=== PATIENT | male | born 1990 | race Native Hawaiian/Other Pacific Islander ===

== ENCOUNTER 2018-09-09 08:51 | Day surgery (SDC) | payer OTHER ==
[2018-08-31 13:06] VITALS: BMI 24.7
[2018-09-09] MEDS ORDERED: Propofol 10 mg/ml Inj (20 ML) ONE (12:41)
[2018-09-09] MEDS ORDERED: Midazolam 2 MG/2 ML VIAL ONE (12:41)
[2018-09-09] MEDS ORDERED: EPINEPHrine- 1.5 MG in Sodium Chloride 0.9% Irrig 3,000 ML IR PRN ×2 (12:45→16:06)
[2018-09-09] MEDS ORDERED: EPINEPHrine- 1.5 MG in Sodium Chloride 0.9% Irrig 3,000 ML IR SCH (12:45)
[2018-09-09] MEDS ORDERED: ceFAZolin 1 gm in NS 2 GM/200 ML BAG IVPB ONE (13:10)
[2018-09-09] MEDS ORDERED: Neostigmine 1:1000 (1 mg/ml) Inj ONE (17:29)
[2018-09-09] MEDS ORDERED: HYDROmorphone 0.5 mg/0.5 ml ISec IVP PRN (17:41)
[2018-09-09] MEDS ORDERED: Ropivacaine 0.5% PF (20 ml) inj INJ ONE (17:59)
--- NOTE | 2018-09-09 18:15 | PCM.ANESB7 ---
Adductor Canal Block - Adductor Canal Block Date of Procedure: 09/09/18 Anesthiologist: geena Pre-Procedure Diagnosis: right acl tear Procedure Performed: Adductor Canal Block Right - Procedure Adductor Canal Block: The procedure was explained to the patient that it is for the post-operative pain management. Consent was obtained after a thorough discussion with the patient regarding the benefits and possible complications of local anesthetic adductor canal block of the femoral nerve. Standard monitors, as defined by the ASA, were applied to the patient. Time-out was held with the circulating nurse to confirm the appropriate block. After applying supplemental oxygen and administering IV Sedation as needed, the patient was placed in supine position with and the operative leg was flexed slightly at the knee and externally rotated as needed, and was kept anatomically stable. The mid-thigh of the right__ lower extremity was exposed. The ultrasound transducer was then applied transversely along the medial aspect, about midway down the thigh and the femoral artery and vein were identified in appropriate relation with the sartorius muscle. At this time, the femoral nerve was visualized lateral to the femoral artery within the canal. After thorough identification, this area area was prepped with Chloroprep solution three times and 1 % Lidocaine was injected subcutaneously for topical anesthesia. At this point, a #22 gauge Stimuplex 4-inch needle was inserted in-plane in a [id number] orientation, and advanced toward the femoral nerve. Advancement was performed carefully under direct ultrasound visualization.After negative aspiration, _5____cc of _.5____% ropivicaine was injected and this was followed with ____15__ cc of ____.5___ % _ropivicaine . Under ultrasound guidance the local anesthetics were observed spreading around the femoral nerve. The needle was removed intact and sterile dressing was applied. The patient had stable vital signs, was conscious and in no apparent distress. The patient tolerated the femoral nerve block well with stable vital signs and was prepared for subsequent surgery
[2018-09-09] MEDS ORDERED: Tobramycin 0.3% OPHT SOLN OS ONE (20:00)
--- NOTE | 2018-09-09 20:25 | CP.PCM.PN ---
Subjective - Date & Time of Evaluation Date of Evaluation: 09/09/18 Time of Evaluation: 20:00 - Subjective Subjective: I was the in house anesthesiologist day habilitation supervisor, called by [facility] nurses to evaluate post op patient for left eye discomfort. Pt seen and examined in PACU. Patient does not report a pain in the left eye just discomfort and gritty feeling. Eye opened , some conjuctival redness, some tearing, on gross inspection no foreign bodies were noticed or ulcers or scratches. Patient is in no distress, lying down in bed comfortably, by the bedside. Since patient is sleepy from pain killers was given clear explanation and instructions. She and the patient were explained that this is likely corneal abrasion. Tobrex 0.3% eye drops were started in [facility], to be repeated in an hour and from then on every 4hrs , 2 drops in left eye. was instructed. Also if the patient feels better with eye patched they can put the patch for comfort, patch provided by [facility]. and patient were instructed if any symptoms worsen,or the eye gets swollen, or discharge starts, any redness to report immediately to the ER. Family understands and agrees to it. The surgeon and anesthesiologist on the case notified of the event and plan for treatment. Objective - Vital Signs/Intake and Output Vital Signs (last 24 hours): Temp Pulse Resp BP Pulse Ox 97.3 F L 93 H 18 125/80 99 09/09/18 09:12 09/09/18 09:12 09/09/18 09:12 09/09/18 09:12 09/09/18 09:12 Intake and Output: 09/09/18 09/10/18 18:59 06:59 Intake Total 1400 Balance 1400 - Medications Medications: Current Medications Epinephrine HCl 1.5 mg/ Sodium (Chloride) 3,001.5 mls @ 0 mls/hr IR Q0M PRN PRN Reason: PER MD ORDER Epinephrine HCl 1.5 mg/ Sodium (Chloride) 3,001.5 mls @ 0 mls/hr IR Q0M PRN PRN Reason: PER MD ORDER
[2018-09-09 21:30] VITALS: TEMP 98.3; O2SAT 98
[2018-09-09 22:30] VITALS: BP 122/72; PULSE 90; RESP 11
--- NOTE | 2018-09-14 13:28 | PCM.SURG1 ---
Surgeon's Initial Post Op Note - Surgeon's Notes Surgeon: Leyla Serrato MD Tallow Refiner: Sonia Castillo PA-C Type of Anesthesia: General Endo, [facility] Pre-Operative Diagnosis: Right knee: #1 complete ACL tear w/ grade 3 instability. #2 lateral meniscal tear. #3 posterior lateral complex grade 2 injury. #4 medial meniscal tear Operative Findings: Right knee: #1 complete ACL tear w/ grade 3 instability. #2 lateral meniscal tear (3 zones of injury: #1 posterior horn large oblique tear at white-red zone/red-red zone, repairable, #2 posterior horn complex horizontal cleavage tear white-red zone/white-white zone, not repairable, #3 Free edge complex tear at junction posterior horn-root, white-white zone tear, not repairable, posterior root stable). #3 medial meniscal tear (2 zones of injury = #1 complex tear superior surface, junction posterior horn-root, not repairable, stable posterior root, #2 complex tear free edge mid body to posterior horn, white-white zone). #4 Posterior lateral corner injury, stable examination under anesthesia, grade 1 with firm endpoint. #5 hypertrophic, inflamed infrapatellar fat pad causing anterior impingement and PF impingement. #6 symptomatic medial and lateral plica bands. #7 significant hypertrophic inflamed synovitis throughout all 3 compartments. 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 #2 lateral meniscal tear (3 zones of injury: #1 posterior horn large oblique tear at white-red zone/red-red zone, repairable, #2 posterior horn complex horizontal cleavage tear white-red zone/white-white zone, not repairable, #3 Free edge complex tear at junction posterior horn-root, white- white zone tear, not repairable, posterior root stable). #3 medial meniscal tear (2 zones of injury = #1 complex tear superior surface, junction posterior horn-root, not repairable, stable posterior root, #2 complex tear free edge mid body to posterior horn, white-white zone). #4 Posterior lateral corner injury, stable examination under anesthesia, grade 1 with firm endpoint. #5 hypertrophic, inflamed infrapatellar fat pad causing anterior impingement and PF impingement. #6 symptomatic medial and lateral plica bands. #7 significant hypertrophic inflamed synovitis throughout all 3 compartments. 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 #2 arthroscopic all inside lateral meniscal repair. #3 arthroscopic partial medial menisectomy. #4 arthroscopic synovectomy all 3 compartments. #5 arthroscopic resection and debridement symptomatic medial and lateral plica band. #6 arthroscopic resection and debridement hypertrophic/inflamed fat pad. #7 arthroscopic chondroplasty patella Specimen/Specimens Removed: specimen = none. Tourniquet time = 0 minutes. Complications = none. Implants =. #1 Arthrex: Fast thread bio composite interference screw 11 mm x 30 millimeter, tight rope double loaded RT system, tight rope button photographic engineer, FiberWire suture. #2 Linvatec: All inside meniscal repair system, 8 implants in total, (2 Kits open) for lateral meniscus repair Estimated Blood Loss: EBL {In ML}: 10 Blood Products Given: N/A Drains Used: No Drains Post-Op Condition: Good Date of Surgery/Procedure: 09/09/18 Time of Surgery/Procedure: 16:00
--- NOTE | 2018-09-21 10:57 | OP ---
PROCEDURE DATE: 09/09/2018 PREOPERATIVE DIAGNOSES: Right knee: 1. Complete acromioclavicular tear with grade 3 instability. 2. Lateral meniscal tear. 3. Posterior lateral complex grade 2 injury. 4. Medial meniscal tear. POSTOPERATIVE DIAGNOSES: Right knee: 1. Complete acromioclavicular tear with grade 3 instability. 2. Lateral meniscal tear (three zones of injury): a. Posterior horn large oblique tear at right-red zone/ red-red zone, repairable. b. Posterior horn complex horizontal cleavage tear right-red zone/ right-white zone not repairable. c. Free edge complex tear at junction posterior horn-route, white-white zone tear, not repairable, posterior route is stable. 3. Medial meniscal tear (two zones of injury): a. Complex tear superior surface, junction posterior horn-route, not repairable, posterior route is stable. b. Complex tear free edge mid body to posterior horn, white-white zone, not repairable. 4. Posterior lateral corner injury, stable examination under anesthesia, grade 1 with firm end point. 5. Hypertrophic, inflamed infrapatellar fat pad, causing anterior impingement and patellofemoral impingement. 6. Symptomatic medial and lateral plica bands. 7. Significant hypertrophic inflamed synovitis throughout all three compartments. 8. 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 PROCEDURES PERFORMED: Right knee arthroscopic: 1. Arthroscopic assisted acromioclavicular reconstruction with allograft hamstring. 2. Arthroscopic all inside lateral meniscus repair. 3. Arthroscopic partial medial meniscectomy. 4. Arthroscopic synovectomy all three compartments. 5. Arthroscopic resection and debridement symptomatic, medial and lateral plica bands. 6. Arthroscopic resection and debridement hypertrophic/inflamed fat pad. 7. Arthroscopic chondroplasty of the patella. 8. Evaluation of posterior lateral corner under anesthesia. SURGEON: Leyla Serrato MD FLIPPING MACHINE OPERATOR: Sonia Castillo PA-C JUSTIFICATION FOR FLIPPING MACHINE OPERATOR: Sonia Castillo is a certified physician land surveyor assistant whose skilled surgical service was an absolute necessity for successful completion of the procedure as he provided skilled surgical assistance with positioning of the patient, positioning of extremity, management of surgical field, retraction of neurovascular structures, preparation of ACL allograft for ACL reconstruction, preparation of femoral tunnel, preparation of tibial tunnel, passage of ACL graft and femoral sided fixation as well as tibial sided fixation utilizing anatomic single bundle technique. Management of arthroscopic equipment and facilitating all inside lateral meniscus repair, partial medial meniscectomy, extensive synovectomy, all three compartments, wound closure, fitting and placement of postoperative hinged knee brace. Sonia Castillo was present for the entire case, who was an absolute necessity for the successful completion of the procedure. TYPE OF ANESTHESIA: General endotracheal anesthesia with a postop regional nerve block placed by anesthesia staff in PACU. SPECIMEN: None. TOURNIQUET TIME: 0 minutes. COMPLICATIONS: None. ESTIMATED BLOOD LOSS: 10 mL. DRAINS: None. DISPOSITION: The patient was extubated and transferred to the PACU in stable condition and tolerated the procedure well. IMPLANTS: Arthrex [employer] interference screw measuring 11 mm x 30 mm length for a tibial sided fixation ACL graft, tight rope, double loaded RT system with a tight rope button extended for femoral sided fixation of ACL graft. [employer] all inside meniscal repair system, 8 implants in total (two kits open) for lateral meniscus for all inside repair. INDICATIONS FOR SURGERY: The patient is a 28-year-old male with no significant past medical history who presented to the first time under my care in my office on 08/11/2018 with right knee pain and instability since 07/16/2018. Date of injury was 07/16/2018 when he was playing recreational soccer in a recreational soccer league and during a game he twisted his body over his right knee without contact from another player resulting in immediate sensation of a pop and development of 9/10 pain localized to the right knee with swelling. He was unable to return to the game to play. He reported the subjective sensation of instability and medial and lateral joint line pain. Since that date of injury, he was unable to return to sports. Initial examination in the office showed positive medial and lateral [place] with tenderness to palpation at medial and lateral joint line, significant ACL instability with 3+ anterior drawer external rotation/ internal rotation/neutral, 3+ Digna, 3+ pivot shift with limited range of motion from 0 to 90 degrees flexion. X-rays in the office taken on 08/11/2018 showed neutral alignment with no evidence of fracture or dislocation and no evidence of DJD with medial and lateral joint line as well as patellofemoral joint well maintained. He was referred for an MRI of the right knee done at [facility] on 08/12/2018 which was read as: 1. Reciprocal bone contusions in keeping with pivot shift injury. 2. Full thickness ACL tear. 3. Grade 2 sprain lateral collateral ligament complex. 4. Oblique tear through lateral meniscus. 5. Grade 1 MCL sprain. On initial presentation in the office he was placed in an [id number] ACL brace for stability and referred to start conservative treatment. He was referred to start physical therapy to regain his range of motion as much as possible. He was started on Mobic antiinflammatory medication and compound antiinflammatory cream and he was encouraged to work hard on a home exercise program to supplement physical therapy. On his followup visit on 08/15/2018 for the review of the MRI, he already had great improvement in range of motion and had regained significant range of motion with 0 to 120 degree flexion arch. I reviewed the MRI at length with him and discussed treatment options. I explained to him the nature of ACL tear. He stated that when he was wearing the ACL brace, he was able to ambulate and felt that he had good stability, but once he tried to perform any sports activities or twisting maneuvers with the brace off, he immediately felt giving way and the sensation of falling. We reviewed the indications for ACL reconstruction and meniscus repair and the risks, benefits, and alternatives. With his current presentation and activity level, he was indicated for ACL reconstruction with allograft versus autograft and evaluation of posterior lateral corner under anesthesia as well as arthroscopic lateral meniscus repair versus partial meniscectomy and possible need for medial meniscus repair versus partial medial meniscectomy and all related indicated arthroscopic procedures. Initial plan was for him to wait a few months until the timing was right for him. As stated before he was already regaining most of his range of motion and was making good progress with his dedication to physical therapy and home exercise program. He then called my office and stated that he was expecting his first child to be born in December and did not anticipate that he would be able to have the surgery anytime soon after the baby was born and was requesting to undergo the surgery as soon as possible so that he would have adequate time to recover and regain his strength and range of motion in time for the delivery of his baby to be able to assist his and take care of the baby. He was initially scheduled for surgery on 09/09/2018 and came in for his final preoperative discussion where we discussed ACL graft choices and he watched multiple surgical animation videos and diagnosis animation videos at length, after all questions were answered he stated that he understood his diagnosis in detail and the multiple parts of the procedure. The risks, benefits, and alternatives to the surgery were discussed at length with the patient with the risks including but not limited to infection, neurovascular damage, need for further surgery, failure of graft, failure of graft fixation, failure of repair, iatrogenic injury, advanced degeneration of cartilage and chondrolysis, development of chronic pain and disability, stiffness, development of blood clots including DVT and PE, anesthesia reactions including . After answering all of his questions he stated that he understood the risks and wished to proceed with surgery. I reviewed at length with the patient the postop rehabilitation protocol and he stated that he had a good understanding of the need for compliance with the rehab protocol in order to maximize the chance of having a successful outcome after surgery. We also spent a longtime discussing the benefits and alternatives to autograft, hamstring as the graft of choice versus bone patellar bone autograft versus allograft, hamstring/soft tissue graft. He did his own research online and contacted me on many occasions over the phone and through email about graft choices and through the course of multiple discussions. In the preoperative area, on the day of surgery, he elected to proceed with allograft, hamstring as his graft of choice and final decision. He was referred to his primary care physician for preadmission testing and preoperative medical evaluation. The procedure was scheduled at [facility] on 09/09/2018. PROCEDURE IN DETAIL: The patient was identified in the preoperative holding area and the right knee was marked for surgery. Once again as described above the risks, benefits, and alternatives of the procedure were discussed at length with the patient and informed consent was obtained. Once again, we decided to proceed with hamstring allograft for the ACL reconstruction graft if indeed indicated to have ACL reconstruction after physical examination under anesthesia and arthroscopic evaluation. After a brief discussion with the anesthesia staff perioperative IV antibiotics in the form of 2 g of Ancef were administered and the patient was taken to the operating room and placed in a well-padded operating room table with all bony prominences and supervision neurovascular structures were well- padded. An initial time-out was done with the surgeon, anesthesia staff, OR staff and all are in agreement with the patient, procedure to be done, extremity being operated on. General anesthesia was administered without difficulty or complications. An examination under anesthesia was then carried out. Examination under anesthesia: Right knee with limited range of motion obtained compared to contralateral knee, lacking 15-20 of extension to 90 flexion with 1+ swelling, no warmth, no erythema and skin intact. Significant ACL instability with 2+ anterior trimmer machine neutral, external rotation and internal rotation with endpoint, 2+ Digna with endpoint, pivot shift not performed to preserve the bucket handle meniscus tear, negative posterior drawer, negative reverse Digna, negative opening to a medial or lateral joint line of 20 or 30 degrees of varus or valgus stress, patella with normal tracking and no evidence of instability, there was suspicion for a symptomatic medial plica band that engaged the inferomedial aspect of the patella at 30 degrees flexion consistently throughout arc of range of motion. The right knee was prepped and draped in standard sterile fashion. A tourniquet was placed high on the right thigh, but never inflated. A final time-out was done with the surgeon, anesthesia staff, and OR staff were all are in agreement with the patient, procedure being done, extremity being operated on. 50 cc of normal saline were used to insufflate the knee joint. A stab incision was made to create an anterolateral portal through the skin down to the subcutaneous tissue down to the level of the capsule. The blunt arthroscopic trocar and cannula were inserted into the suprapatellar pouch. And insufflation with arthroscopic fluid was begun. With the use of spinal needle localization, optimal entry point for the anteromedial portal was selected and a stab incision was made through skin down subcutaneous tissue to create the anteromedial portal. An accessory cannula was inserted into the anterior medial portal and the knee was copiously irrigated for better visualization and removal of synovial debris. With the use of the arthroscopic probe, a diagnostic arthroscopy was then carried out. Diagnostic arthroscopy: Attention was first turned towards the suprapatellar pouch where there was no evidence of adhesions or loose bodies. Attention was then turned towards the patellofemoral joint where intact patella and trochlear cartilage were seen with a well-situated patella within the trochlea with no evidence of instability or subluxation. There was significant hypertrophic synovial inflamed tissue interposed at the patellofemoral joint as well as hypertrophic and inflamed fat pad causing impingement symptoms as well and also a thickened medial plica band extending from the inferomedial aspect of the patella to the medial retinaculum. Attention was then turned towards the medial gutter where there was no evidence of loose bodies and as stated further with significant synovitis and the plica band. At the anterior aspect of the knee joint, there was also hypertrophic fat pad and significant hypertrophic synovitis. Attention was then turned towards the medial compartment, immediately seen was an obvious large bucket-handle medial meniscus tear flipped over and stuck around the medial femoral condyle M within the intercondylar notch around the PCL, and with the use of the arthroscopic probe, the medial meniscus was carefully evaluated. The medial meniscus had the expected bucket-handle meniscus tear that extended to the periphery as a red-white zone injury encompassing the anterior horn extending posteriorly to the posterior horn. The was a secondary zone of injury as a longitudinal and complex tear of the posterior horn with meniscocapsular separation and instability of the posterior horn. The bucket-handle portion of the tear exhibited poor quality tissue, nevertheless a future repair attempt would be made. At the mid body of the medial meniscus periphery, there was nonabsorbable suture and visible implant from the previous medial meniscal repair. The medial tibial plateau exhibited normal cartilage with no evidence of chondral injury and the medial femoral condyle exhibited a focal area of grade 2 chondromalacia with unstable cartilage fibrillation and flap at the weightbearing aspect of the lateral aspect of the medial femoral condyle. Attention was turned towards the intercondylar notch where indeed confirmed was a high-grade ACL tear with minimal remnant fibers. This was an equivalent complete ACL tear with attenuated fibers/nonfunctioning remnant ACL fibers. This would explain instability that resulted in the developing bucket-handle medial meniscal tear. The PCL appeared to be intact with normal fibers. Attention was then turned towards the lateral compartment where intact lateral femoral condyle and lateral tibia plateau. After careful evaluation of the lateral meniscus with the arthroscopic probe, the anterior horn was found to have fibrillation and complex tearing involving the superior surface of the anterior horn of the lateral meniscus. The remaining lateral meniscus was without injury and appeared to be intact. Repeat examination under anesthesia with bucket-handle medial meniscal tear reduced and medial compartment: 3+ anterior drawer with no endpoint, 3+ Digna with no endpoint, 3+ pivot shift, negative posterior drawer, negative reverse Digna, negative reverse pivot shift, negative opening to medial lateral joint line at 0 or 30 varus or valgus stress, negative posterior lateral corner drawer, negative dial test. At this point he became clear that the ACL chronic injury was indicated for ACL reconstruction as the ACL fibers present were attenuated and nonfunctioning resulting in grade 3 instability and the equivalent of a complete ACL tear. Arthroscopic removal of foreign body/previous meniscus repair implants: We first turned our attention to removal of the previous meniscus repair implant from the periphery of the medial meniscus. There was colored nonabsorbable suture attached to a PEEK anchor implant embedded within the medial capsule. With gentle force and traction, the [employer] meniscus repair implant was removed in its entirety with the nonabsorbable suture and 2 peek implants/anchors. This was a necessary step towards facilitating the meniscus repair as well as removing the foreign body that this point was nonfunctional and unnecessary to remain present. All inside medial meniscal repair: With the use of spinal needle, an accessory portal was created to provide away to reduce the bucket-handle meniscus tear in its anatomic position with a blunt instrument while performing the medial meniscal repair. Stab incision was made through skin down subcutaneous tissue down to level of capsule and the accessory medial portal was created. With the use of the blunt multi-use targeting arm from the Arthrex ACL reconstruction set, my land surveyor assistant held the bucket-handle medial meniscal tear in a reduced position for anatomic repair. With the use of the [employer] meniscus repair system, we began all inside medial meniscal repair. We started with stabilization of the posterior aspect of the bucket- handle tear while my land surveyor assistant held the bucket-handle tear in a reduced position. 4 implants were placed at the posterior horn with alternating resulting 3 vertical and horizontal mattress sutures at the posterior horn, this provided good stable posterior horn meniscus repair of the posterior aspect of the bucket-handle tear. As we continued to work our way anterior, the mid point of the bucket-handle tear had the course quality medial meniscus tissue. As visualized on the arthroscopic pictures this portion of the medial meniscus was frail and gave way with the meniscus repair attempt. It became evident that this portion of the medial meniscus had to be resected. We continued with a partial medial meniscectomy of the irreparable portion of the bucket-handle medial meniscus tear. With the use of arthroscopic shaver, radiofrequency ablation, arthroscopic meniscal biters, a partial medial meniscectomy was carried out removing approximately 35% of the medial meniscus overall with care taken to leave as much stable good quality medial meniscus tissue behind as possible. Once the poor quality portions of the tear were removed, we continued with completion of the all inside medial meniscus repair. 4 implants were used to stabilize the anterior aspect of the remnant mid body with good capsular sided fixation and resulting 3 alternating horizontal and vertical mattress sutures. The posterior horn repair was then reinforced with reduction of the posterior horn and stabilization to the posterior medial capsule with placement of 4 more implants with good capsular sided fixation. With the use of arthroscopic probe the medial meniscus repair was tested and found to be stable with good reapproximation of the posterior horn to the posterior medial capsule. Arthroscopic chondroplasty medial femoral condyle: As stated before the weightbearing aspect of the medial femoral condyle displayed a focal area of grade 2 chondromalacia with fibrillated and unstable cartilage flaps. This measured approximately 9 mm x 6 mm at the lateral aspect of the medial femoral condyle weightbearing zone. With the use of arthroscopic shaver and radiofrequency ablation a chondroplasty was carried out removing the unstable cartilage fragments and establishing a smooth contour to the medial femoral condyle. There was no full thickness zone of cartilage injury with grade 2 chondromalacia/chondral injury that was stable. Arthroscopic partial lateral meniscectomy: As stated above, anterior horn lateral meniscus exhibited a small area of fibrillation and complex tearing. This was not repairable and a partial lateral meniscectomy was carried out preserving as much lateral meniscus tissue as possible. Reduce abuts Shaver and radiofrequency ablation a partial lateral meniscectomy was carried out establishing a smooth contour to the anterior horn of the lateral meniscus removing any unstable fragments and injured meniscus tissue. The radiofrequency ablation was used to smooth out the anterior horn of the lateral meniscus and establish a smooth contour. Once this was completed overall approximately 5% of the lateral meniscus was resected overall exercising good joint preservation technique and preserving as much of the lateral meniscus as possible. Again the remaining lateral meniscus was examined closely and there was no evidence of injury to the remaining lateral meniscus tissue. Arthroscopic extensive synovectomy: With the use of arthroscopic shaver and radiofrequency ablation extensive 3 compartment synovectomy was carried out maintaining good hemostasis. This was beyond what is considered usual and customary to establish better visualization during arthroscopic surgery and ACL reconstruction. A significant amount of surgical time was dedicated towards this portion of the procedure which included extensive synovectomy of all 3 compartments, resection and debridement of the hypertrophic inflamed fat pad causing impingement, resection and debridement of the symptomatic medial plica band. Again this was an extensive synovectomy was use to treat the symptomatic hypertrophic inflamed fat pad causing anterior impingement, symptomatic medial plica band and hypertrophic synovial tissue for all 3 compartments. Arthroscopic assisted ACL reconstruction with allograft: The attenuated/nonfunctioning remnant ACL was resected and debrided, the anatomic footprints at the tibia and lateral femoral condyle were noted and marked. A single bundle anatomic ACL reconstruction with allograft was carried out. My land surveyor assistant had prepared the ACL allograft with the semitendinosus and gracilis allograft tendon doubled over measuring 9.5 mm doubled over in width. A 9.5 mm flip cutter drill was selected for placement of the femoral tunnel. The anatomic footprint of the ACL insertion of the lateral femoral condyle was identified and with the use of the Arthrex over the top ACL guide for the femoral side. The femoral tunnel was placed. A lateral incision at the distal femur was created that was small measuring approximately 2 cm. There is skin down to subcutaneous tissue down to the iliotibal band down to the lateral cortex of the distal femur. The guide sleeve was then advanced to the lateral cortex for the distal femur and the 9.5 mm flip cutter drill bit was advanced from outside in until it was seen in the intraarticular position and optimal placement for the single bundle anatomic ACL reconstruction. Care was taken to ensure that intact back wall was present. The flip cutter drill bit was then flipped and a 9.5 mm width, 30 mm depth socket was created. Once the femoral tunnel was created to satisfaction and confirmed to have intact back wall passing suture was placed through the tunnel and tied around the outside of the knee. The full thickness tibial tunnel was then created with the use of the Arthrex tibial guide. Also 9.5 mm in width. The guide was placed in optimum position for the anatomic footprint of the ACL and the tibia and the guidewire was advanced from outside to end until that was seen in the intraarticular position and confirmed to be in a good position. A small 2 cm incision was made at the proximal medial tibia to allow for access to the guide and drilling the tunnel. Incision was made through skin down subcutaneous tissue down to the level of proximal medial metaphysis of the tibia. Once the guidewire was in good position, the cannulated 9.5 mm drill/reamer was advanced over the guidewire and a full thickness 9.5 mm tibial tunnel was created. All soft tissue enters to both tunnels were debrided with the use of the shaver and the passing suture was passed through the tibial tunnel. The graft had been under tension prepared by my land surveyor assistant was then passed through the tibial tunnel and into the femoral tunnel with the TightRopbe button flip on to the lateral cortex of the distal femur under direct visualization with no interpossed tissue. Fluoroscopic imaging was used to confirm that the button sat directly on the lateral cortex with no interpose soft tissue as well. Once the button was in a good position with tension maintained on the graft, the TightRope suture was synched until the graft was docked within tunnel up to the 25 mm marking on the graft. At that point in time we turned toward the tibial side of fixation and a 11 mm x 28 mm length BioComposite interference screw from [employer] was used for a tibial side of fixation. The knee was taken through the full range of motion 30 cycles to remove any creep from the system and under direct arthroscopic visualization optimal tension was achieved on the graft limbs. My land surveyor assistant held tension on the graft limbs while I placed the interference screw with the posterior drawer placed on the knee held at 10 degrees of flexion. The screw was placed with good fixation achieved well seated within the tunnel. The knee was then tested and indeed ACL stability had been achieved with negative anterior drawer, negative Digna, negative pivot shift. All excess graft and suture were removed. Arthroscopic probe was used to confirm that the medial meniscal repair was still stable and did not require any further intervention and confirmed to be successful. The graft tension was confirmed to be tight in a good position. The extensive synovectomy was completed to satisfaction with the arthroscopic shaver and radiofrequency ablation were maintained good hemostasis. At that point in time, all arthroscopic fluid and debris were removed from the knee joint and final images had been taken. Intra-articular PRP injection: With the help of the anesthesia staff, 5 cc of PRP were obtained and injected intraarticularly. A peripheral venous stick was done dry and 15 cc a peripheral venous blood. This was then spun in the [employer] centrifuge. This yielded 5 cc of PRP. The 5 cc of PRP were injected in its entirety under direct arthroscopic visualization and an intra-articular position. All wounds were copiously irrigated and reapproximated with #1 Vicryl suture for iliotibal band and deep tissue, 2-0 Vicryl suture for subcutaneous tissue, 3-0 Monocryl suture for skin. Sterile dressings were applied followed by a layer of sterile cast padding from the toes up to the superior thigh followed by layer of compressive Fernando wrap from the toes up to the superior thigh. The knee was then placed and fitted in a postop hinge knee brace provided by my office. The patient was extubated from general anesthesia and transferred to the PACU in stable condition and tolerated the procedure well. Rationale for billing and coding: #1 arthroscopic assisted ACL reconstruction with allograft was carried out successfully and therefore coded and billed. #2 arthroscopic all inside medial meniscal repair was carried out successfully with concomitant partial medial meniscectomy, therefore medial meniscal repair was coded and billed. #3 arthroscopic partial lateral meniscectomy was carried out successfully, therefore partial lateral meniscectomy was coded and billed. #4 arthroscopic removal of foreign body/meniscal repair implant from previous arthroscopic surgery was carried out successfully, therefore removal of foreign body was coded and billed. #5 arthroscopic chondroplasty of medial femoral condyle was carried out, therefore chondroplasty was coded and billed. #6 arthroscopic extensive synovectomy of all 3 compartments was carried out. This was beyond what was considered usual and customary for better visualization during arthroscopic surgery and ACL reconstruction. This included 3 compartment synovectomy, debridement and resection of hypertrophic and inflamed fat pad causing anterior impingement, resection and debridement of symptomatic medial plica band. A significant amount of surgical time was to bother towards this portion of the procedure and therefore an extensive synovectomy was coded and billed as an independent apartment of the procedure. #7 intra-articular PRP injection was done at the end of the procedure to maximize healing potential. Therefore PRP injection was coded and billed #8 at the end of the surgery, the knee was fitted and placed in a postop hinge knee brace provided by my office. The brace is of medical necessity to protect the meniscus repair and ACL reconstruction. With the brace on the patient is able to weight-bear as tolerated with the brace locked at 0 extension. Therefore the postop hinged knee brace was coded and billed. DISPOSITION: The patient will be discharged home once he is recovered from anesthesia. He was instructed to keep the brace and dressings clean, dry, and intact until he follows up in the office. He can be weightbearing as tolerated with the postop hinged knee brace locked at 0 extension. He is instructed to keep the brace on at all times. He is been educated on how to unlock the brace and work on range of motion as well as. He will follow up in my office at [facility] within one week and already has postoperative appointment set up. He was given prescription for Percocet for pain control. He has been given a prescription for Lovenox as DVT prophylaxis after having multiple discussions and electing to proceed with the best prophylaxis treatment to prevent blood clot formation. He will contact me directly with any questions or concerns. Leyla Serrato MD MTDD
== END 2018-09-09 22:15 | disposition home or self-care (01) ==
LOC: C.SDS 08:51
PROVIDERS: ATTEND Student in an Organized Health Care Education/Training Program
DX: S83.511A Sprain of anterior cruciate ligament of right knee, initial encounter (principal); S83.421A Sprain of lateral collateral ligament of right knee, initial encounter; S83.271A Complex tear of lateral meniscus, current injury, right knee, initial encounter; M93.261 Osteochondritis dissecans, right knee; M65.9 Synovitis and tenosynovitis, unspecified; S83.289A Other tear of lateral meniscus, current injury, unspecified knee, initial encounter
CPT/HCPCS: 29881; 97116; 97161; C1713; C1762; G8978; G8979; G8980; J0171; J0690; J1170; J2250; J2405; J2704; J2710; J3010